=== PATIENT | female | born 1960 | race Hispanic/Latino ===

== ENCOUNTER → 2019-08-31 | Outpatient (CLI) | payer BC ==
[~2019-08-31] MED LIST: ESOM20SU PO; INSU300I SQ; LEVO150T11 PO; LISI2.5T2 PO; PANT40TA25 PO; ROSU20TA23 PO
== END | disposition home or self-care (01) ==
LOC: RAH 08:19
PROVIDERS: ATTEND Internal Medicine
DX: K76.0 Fatty (change of) liver, not elsewhere classified (principal); Z90.49 Acquired absence of other specified parts of digestive tract
CPT/HCPCS: 76700

== ENCOUNTER 2021-08-13 18:26 | Inpatient (IN) | payer OTHER ==
[~2021-08-13] VITALS: Ht 149.9 cm; Wt 120.1 kg
[~2021-08-13 18:26] MED LIST changes: +AEC81 PO; +GLIP-162 PO; +ICOS1CAP PO; +INSU100I68 SQ; +LINA5TAB PO; +LISI2.5T13 PO; -LISI2.5T2 PO; +MELO-108 PO; +OMEG1CAP31 PO; -PANT40TA25 PO; +PANT40TA54 PO; +TRAM1TAB PO
[2021-08-13] MEDS: ZOSYN 3.375GM +NS 50ML IV SCH (20:11)
[2021-08-13 20:12] VITALS: BP 151/61
[2021-08-13] MEDS: 0.9%NACL 50ML 50 ML IV SCH (20:12)
[2021-08-13 20:20] LABS: HEMATOCRIT 41.8 % (36-48); MEAN CORPUSCULAR HEMOGLOBIN 29.7 pg (27.0-33.0); MEAN CORPUSCULAR HGB CONC 32.3 g/dL (32.0-36.0); MEAN CORPUSCULAR VOLUME 91.9 fL (79-99); RED BLOOD CELL COUNT(AUTO) 4.55 MIL/uL (4.00-5.50); RED CELL DISTRIBUTION WIDTH 13.2 % (11.0-15.5); WHITE BLOOD COUNT (AUTO) 10.7 K/uL (4.8-10.8)
[2021-08-13 20:32] LABS: ALBUMIN 2.9 g/dL (3.5-5.0); BILIRUBIN,TOTAL 0.2 mg/dL (0.2-1.0); CREATININE 1.1 mg/dL (0.5-1.5); POTASSIUM 3.3 mmol/L (3.5-5.1); TOTAL PROTEIN, SERUM 7.6 g/dL (6.0-8.3)
[2021-08-13] MEDS ORDERED: LEVO750T46 PO (20:52)
[2021-08-13] MEDS ORDERED: CEPH500T PO (20:52)
[2021-08-14] VITALS (17 sets, daily range): BP systolic 117–155; BP diastolic 56–81
[2021-08-14] MEDS ORDERED: LIDOCAINE HCL-MPF 1% 2ML VIAL IV PRN
[2021-08-14] MEDS ORDERED: DEXTROSE 50%-WATER 50 ML DISP.SYRIN IV PRN
[2021-08-14] MEDS ORDERED: DIPHENHYDRAMINE HCL 25 MG CAPSULE PO PRN
[2021-08-14] MEDS ORDERED: ACETAMINOPHEN 325 MG TAB PO PRN ×2
[2021-08-14] MEDS ORDERED: DiphenhydrAMINE HCL 50 MG/ML VIAL IV PRN
[2021-08-14] MEDS ORDERED: MAG/ALUM/SIMETH 30 ML UDCUP PO PRN
[2021-08-14] MEDS ORDERED: ONDANSETRON 4MG INJ IV PRN
[2021-08-14] MEDS ORDERED: POTASSIUM CHLORIDE 10% ELIXIR 20 MEQ/15 ML UDCUP PO PRN
[2021-08-14] MEDS ORDERED: TRAMADOL HCL 50 MG TABLET PO PRN
[2021-08-14] MEDS ORDERED: GLUCAGON 1MG KIT 1 MG ML IM PRN
[2021-08-14] MEDS ORDERED: KCL 20 MEQ ERTAB PO PRN
[2021-08-14] MEDS ORDERED: LACTULOSE 20 GM/30 ML UDCUP PO PRN
[2021-08-14] MEDS ORDERED: VANCOMYCIN PROTOCOL PER PHARMACY IV SCH (00:30)
[2021-08-14] MEDS ORDERED: VANCOMYCIN 1G/250ML KIT 250 ML IV ONE (00:30)
[2021-08-14] MEDS: 0.9%NACL 1000ML 1,000 ML IV SCH ×3 (00:54→20:00)
[2021-08-14] MEDS: MORPHINE 4 MG SYG IV PRN ×3 (02:36→22:58)
[2021-08-14] MEDS: ZOSYN 3.375GM +NS 50ML IV SCH ×4 (04:07→20:45)
[2021-08-14 04:34] LABS: HEMATOCRIT 39.3 % (36-48); MEAN CORPUSCULAR HEMOGLOBIN 29.7 pg (27.0-33.0); MEAN CORPUSCULAR HGB CONC 31.8 g/dL (32.0-36.0); MEAN CORPUSCULAR VOLUME 93.3 fL (79-99); RED BLOOD CELL COUNT(AUTO) 4.21 MIL/uL (4.00-5.50); RED CELL DISTRIBUTION WIDTH 13.4 % (11.0-15.5); WHITE BLOOD COUNT (AUTO) 10.3 K/uL (4.8-10.8)
[2021-08-14 04:43] LABS: POTASSIUM 3.2 mmol/L (3.5-5.1)
[2021-08-14] MEDS ORDERED: POTASSIUM CHLORIDE 20MEQ/100ML 100 ML IV PRN ×2 (05:00)
[2021-08-14] MEDS: LEVOTHYROXINE 150 MCG TABLET PO SCH (05:20)
[2021-08-14] MEDS: INSULIN HUMULIN R 100 UNIT/ML 3ML SQ SCH ×4 (05:29→21:00)
[2021-08-14] MEDS: INSULIN GLARGINE 100 UNITS/ML 10 ML VIAL SQ SCH ×2 (07:30→22:46)
[2021-08-14] MEDS: PANTOPRAZOLE 40 MG TAB DR PO SCH (09:00)
[2021-08-14] MEDS: GLIPIZIDE XL 5MG TAB PO SCH ×2 (09:00→22:52)
[2021-08-14] MEDS: LINAGLIPTIN 5 MG TABLET PO SCH (09:00)
[2021-08-14] MEDS: LISINOPRIL 2.5 MG TABLET PO SCH (09:00)
[2021-08-14] MEDS: ENOXAPARIN SODIUM 40 MG/0.4 ML SYRINGE SQ SCH (09:00)
[2021-08-14] MEDS ORDERED: 0.9%NACL 100ML 100 ML IV SCH (09:31)
[2021-08-14] MEDS: VANCOMYCIN 500MG+NS 100ML IVPB IV SCH ×2 (10:33→22:50)
[2021-08-14 18:16] LABS: CREATININE 0.9 mg/dL (0.5-1.5); POTASSIUM 3.6 mmol/L (3.5-5.1)
[2021-08-14] MEDS ORDERED: MIDAZOLAM HCL 1 MG/ML 2ML VIAL ONE (18:55)
[2021-08-14] MEDS ORDERED: FENTANYL CITRATE PF 50 MCG/1 ML 2ML VIAL ONE (18:55)
[2021-08-14] MEDS ORDERED: BUPIVACAINE/PF 0.5% 30ML VIAL ONE (20:43)
[2021-08-14] MEDS ORDERED: LIDOCAINE HCL 1% MDV 50ML VIAL ONE (20:43)
[2021-08-14] MEDS ORDERED: PROPOFOL 10 MG/ML 20ML VIAL IV ONE (21:28)
[2021-08-14] MEDS ORDERED: KETOROLAC 30MG VIAL (30MG/ML) ONE (21:49)
[2021-08-14] MEDS: ATORVASTATIN 40 MG TABLET PO SCH (22:52)
[2021-08-15] VITALS (8 sets, daily range): BP systolic 110–146; BP diastolic 54–76
[2021-08-15] MEDS: ZOSYN 3.375GM +NS 50ML IV SCH ×4 (04:00→21:16)
[2021-08-15 05:24] LABS: HEMATOCRIT 39.7 % (36-48); MEAN CORPUSCULAR HEMOGLOBIN 30.1 pg (27.0-33.0); MEAN CORPUSCULAR HGB CONC 31.2 g/dL (32.0-36.0); MEAN CORPUSCULAR VOLUME 96.4 fL (79-99); RED BLOOD CELL COUNT(AUTO) 4.12 MIL/uL (4.00-5.50); RED CELL DISTRIBUTION WIDTH 13.7 % (11.0-15.5)
[2021-08-15 05:52] LABS: CREATININE 0.9 mg/dL (0.5-1.5); POTASSIUM 3.9 mmol/L (3.5-5.1)
[2021-08-15] MEDS: 0.9%NACL 1000ML 1,000 ML IV SCH ×2 (05:54→16:00)
[2021-08-15] MEDS: LEVOTHYROXINE 150 MCG TABLET PO SCH (07:20)
[2021-08-15] MEDS: INSULIN GLARGINE 100 UNITS/ML 10 ML VIAL SQ SCH ×2 (07:21→20:49)
[2021-08-15] MEDS: ENOXAPARIN SODIUM 40 MG/0.4 ML SYRINGE SQ SCH (09:58)
[2021-08-15] MEDS: GLIPIZIDE XL 5MG TAB PO SCH ×2 (09:59→21:03)
[2021-08-15] MEDS: LINAGLIPTIN 5 MG TABLET PO SCH (09:59)
[2021-08-15] MEDS: LISINOPRIL 2.5 MG TABLET PO SCH (09:59)
[2021-08-15] MEDS: PANTOPRAZOLE 40 MG TAB DR PO SCH (09:59)
[2021-08-15] MEDS: VANCOMYCIN 500MG+NS 100ML IVPB IV SCH (10:00)
[2021-08-15] MEDS: INSULIN HUMULIN R 100 UNIT/ML 3ML SQ SCH ×3 (11:30→20:49)
[2021-08-15] MEDS: ATORVASTATIN 40 MG TABLET PO SCH (21:03)
[2021-08-15] MEDS: MORPHINE 4 MG SYG IV PRN (21:06)
[2021-08-15] MEDS ORDERED: 0.9% NACL 250ML 250 ML ONE (21:55)
[2021-08-15] MEDS: VANCOMYCIN KIT 1 GM/250 ML IV.KIT IV SCH (22:45)
[2021-08-16 00:25] VITALS: BP 113/52
[2021-08-16 04:21] VITALS: BP 121/70
[2021-08-16] MEDS: ZOSYN 3.375GM +NS 50ML IV SCH ×3 (04:44→20:30)
[2021-08-16] MEDS: LEVOTHYROXINE 150 MCG TABLET PO SCH (06:05)
[2021-08-16] MEDS: INSULIN GLARGINE 100 UNITS/ML 10 ML VIAL SQ SCH ×2 (06:06→20:36)
[2021-08-16] MEDS: INSULIN HUMULIN R 100 UNIT/ML 3ML SQ SCH ×4 (06:07→20:34)
[2021-08-16 08:00] VITALS: BP 156/80
[2021-08-16] MEDS: VANCOMYCIN KIT 1 GM/250 ML IV.KIT IV SCH ×2 (08:29→22:29)
[2021-08-16] MEDS: LINAGLIPTIN 5 MG TABLET PO SCH (08:31)
[2021-08-16] MEDS: LISINOPRIL 2.5 MG TABLET PO SCH (08:31)
[2021-08-16] MEDS: ENOXAPARIN SODIUM 40 MG/0.4 ML SYRINGE SQ SCH (08:31)
[2021-08-16] MEDS: GLIPIZIDE XL 5MG TAB PO SCH ×2 (08:31→20:31)
[2021-08-16] MEDS: PANTOPRAZOLE 40 MG TAB DR PO SCH (08:31)
[2021-08-16 11:41] VITALS: BP 148/80
[2021-08-16] MEDS: 0.9%NACL 50ML 50 ML IV SCH (12:40)
[2021-08-16 16:00] VITALS: BP 145/74
[2021-08-16] MEDS: MORPHINE 4 MG SYG IV PRN ×2 (18:38→20:12)
[2021-08-16 19:58] VITALS: BP 158/73
[2021-08-16] MEDS ORDERED: 0.9% NACL 250ML 250 ML ONE (20:25)
[2021-08-16] MEDS: ATORVASTATIN 40 MG TABLET PO SCH (20:31)
[2021-08-17] VITALS: BP 140/78
[2021-08-17 03:34] VITALS: BP 138/76
[2021-08-17] MEDS: ZOSYN 3.375GM +NS 50ML IV SCH ×2 (04:30→13:21)
[2021-08-17 04:31] LABS: HEMATOCRIT 38.5 % (36-48); MEAN CORPUSCULAR HEMOGLOBIN 30.1 pg (27.0-33.0); MEAN CORPUSCULAR HGB CONC 31.7 g/dL (32.0-36.0); MEAN CORPUSCULAR VOLUME 95.1 fL (79-99); RED BLOOD CELL COUNT(AUTO) 4.05 MIL/uL (4.00-5.50); RED CELL DISTRIBUTION WIDTH 13.5 % (11.0-15.5); WHITE BLOOD COUNT (AUTO) 9.9 K/uL (4.8-10.8)
[2021-08-17 04:43] LABS: CREATININE 0.9 mg/dL (0.5-1.5); POTASSIUM 3.5 mmol/L (3.5-5.1)
[2021-08-17] MEDS: LEVOTHYROXINE 150 MCG TABLET PO SCH (05:45)
[2021-08-17] MEDS: INSULIN HUMULIN R 100 UNIT/ML 3ML SQ SCH ×3 (06:29→16:30)
[2021-08-17] MEDS: INSULIN GLARGINE 100 UNITS/ML 10 ML VIAL SQ SCH (06:47)
[2021-08-17 08:00] VITALS: BP 146/65
[2021-08-17] MEDS ORDERED: 0.9% NACL 250ML 250 ML ONE (08:20)
[2021-08-17] MEDS: ENOXAPARIN SODIUM 40 MG/0.4 ML SYRINGE SQ SCH (08:26)
[2021-08-17] MEDS: LISINOPRIL 2.5 MG TABLET PO SCH (08:27)
[2021-08-17] MEDS: VANCOMYCIN KIT 1 GM/250 ML IV.KIT IV SCH (08:27)
[2021-08-17] MEDS: GLIPIZIDE XL 5MG TAB PO SCH (08:28)
[2021-08-17] MEDS: PANTOPRAZOLE 40 MG TAB DR PO SCH (08:28)
[2021-08-17] MEDS: LINAGLIPTIN 5 MG TABLET PO SCH (08:30)
[2021-08-17 12:00] VITALS: BP 122/74
[2021-08-17] MEDS ORDERED: LEVO750T46 PO (14:17)
[2021-08-17] MEDS ORDERED: CLIN-141 PO (14:17)
[2021-08-17 16:00] VITALS: BP 160/77
[2021-08-17] MEDS ORDERED: VANCOMYCIN 750MG VIAL IVPB SCH (21:00)
[2021-08-17] MEDS ORDERED: 0.9% NACL 250ML 250 ML IV SCH (21:00)
== END 2021-08-17 19:20 | disposition home health service (06) | DRG 603 ==
LOC: EDH 18:26 → INTOOBSV 18:27 → OBSVTOIN 18:27 → 3CH 18:27
PROVIDERS: ADMIT Internal Medicine; ATTEND Internal Medicine
PROC: 0Y9J0ZZ Drainage of Left Lower Leg, Open Approach (ICD-10-PCS; principal; 2021-08-14 21:11)
DX: L02.416 Cutaneous abscess of left lower limb (principal); Z68.43 Body mass index [BMI] 50.0-59.9, adult; E11.22 Type 2 diabetes mellitus with diabetic chronic kidney disease; E11.65 Type 2 diabetes mellitus with hyperglycemia; I12.9 Hypertensive chronic kidney disease with stage 1 through stage 4 chronic kidney disease, or unspecified chronic kidney disease; N18.2 Chronic kidney disease, stage 2 (mild); E66.01 Morbid (severe) obesity due to excess calories; Z20.822 Contact with and (suspected) exposure to COVID-19; E03.9 Hypothyroidism, unspecified; E78.2 Mixed hyperlipidemia; K76.0 Fatty (change of) liver, not elsewhere classified; J30.9 Allergic rhinitis, unspecified; E11.40 Type 2 diabetes mellitus with diabetic neuropathy, unspecified; G47.33 Obstructive sleep apnea (adult) (pediatric); M85.80 Other specified disorders of bone density and structure, unspecified site; Z95.828 Presence of other vascular implants and grafts; Z86.14 Personal history of Methicillin resistant Staphylococcus aureus infection; Z79.84 Long term (current) use of oral hypoglycemic drugs; Z79.82 Long term (current) use of aspirin; Z79.4 Long term (current) use of insulin; Z79.899 Other long term (current) drug therapy; Z79.890 Hormone replacement therapy; Z88.8 Allergy status to other drugs, medicaments and biological substances; Z83.3 Family history of diabetes mellitus; Z82.49 Family history of ischemic heart disease and other diseases of the circulatory system
CPT/HCPCS: 36415; 80048; 80053; 80202; 82948; 85027; 86850; 86900; 86901; 87040; 87070; 87076; 87205; 87635; A6266; G0378; J1650; J1815; J1885; J2250; J2270; J2405; J2543; J2704; J3010; J3370; J3480; J3490; J7030; J7050